=== PATIENT | male | born 2000 | race African-American/Black ===

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

== ENCOUNTER 2022-12-10 12:59 | Emergency (ER) | payer OTHER ==
[2022-12-10 13:04] VITALS: BP 128/85; PULSE 102; RESP 18; TEMP 97.9; BMI 27.1
== END 2022-12-10 14:47 | disposition home or self-care (01) ==
LOC: JER 12:59 → JERFT 12:59
DX: L73.9 Follicular disorder, unspecified (principal)
CPT/HCPCS: 99281-25

== ENCOUNTER 2024-06-11 11:05 | Emergency (ER) | payer OTHER ==
[2024-06-11 11:13] VITALS: BP 137/87; PULSE 78; RESP 17; TEMP 98.6; BMI 25.7
[2024-06-11] MEDS ORDERED: MAGNESIUM HYDROX 2400MG/30ML ORAL SUSPENSION 30 ML CUP ONE (12:36)
[2024-06-11] MEDS ORDERED: MAG HYDROX/AL HYDROX/SIMETH 30 ML UNIT-DOSE CUP ONE (12:37)
[2024-06-11] MEDS ORDERED: ONDANSETRON 4 MG/2 ML VIAL ONE (12:37)
[2024-06-11] MEDS ORDERED: FAMOTIDINE 20 MG/50 ML IVPB 20 MG/50 ML MG IVPB ONE (12:37)
[2024-06-11] MEDS: SODIUM CHLORIDE 0.9% 500 ML INFUS.BAG IV ONE (12:38)
[2024-06-11] MEDS: FAMOTIDINE 20 MG/50 ML IVPB 20 MG/50 ML MG IVPB ONE (12:39)
[2024-06-11] MEDS: MAG HYDROX/AL HYDROX/SIMETH 30 ML UNIT-DOSE CUP PO ONE (12:39)
[2024-06-11] MEDS: ONDANSETRON 4 MG/2 ML VIAL IVPB ONE (12:39)
[2024-06-11 12:58] LABS: BASO % 1.1 % (0-2.0); EOS % 2.3 % (0-4.5); HEMATOCRIT 46.7 % (35.4-49); HEMOGLOBIN 15.8 GM/dL (11.7-16.9); LYMPH % 19.9 % (8-40); MCH 31.2 pg (25.7-33.7); MCHC 33.9 g/dl (32.0-35.9); MEAN CELL VOLUME 92.1 fl (80-96); MEAN PLT VOLUME 9.2 fl (7.5-11.1); MONO % 6.2 % (3.8-10.2); NEUT % 70.5 % (42.8-82.8); PLATELET COUNT 241 10^3/uL (134-434); RBC 5.07 M/mm3 (4.00-5.60); RDW 12.7 % (11.9-15.9); WHITE BLOOD COUNT 7.6 K/mm3 (4.0-10.0)
[2024-06-11 13:03] LABS: INR 1.05 (0.83-1.09); PROTHROMBIN TIME (PATIENT) 12.1 SEC (9.7-13.0)
[2024-06-11 13:06] LABS: ACTIVATED PTT 30.9 SECONDS (25.2-36.5)
[2024-06-11 13:31] LABS: POTASSIUM 4.1 mmol/L (3.5-5.1)
[2024-06-11 13:33] LABS: CALCIUM 9.4 mg/dL (8.5-10.1)
[2024-06-11 13:34] LABS: ALBUMIN 4.3 g/dl (3.4-5.0); BLOOD UREA NITROGEN 13.9 mg/dL (7-18); MAGNESIUM 2.5 mg/dL (1.8-2.4)
[2024-06-11 13:37] LABS: CREATININE 1.2 mg/dL (0.55-1.3)
[2024-06-11 13:38] LABS: BILIRUBIN,TOTAL 1.8 mg/dL (0.2-1); TOT PROT 7.6 g/dl (6.4-8.2)
== END 2024-06-11 15:00 | disposition home or self-care (01) ==
LOC: JER 11:05
PROC: 3E033GC Introduction of Other Therapeutic Substance into Peripheral Vein, Percutaneous Approach (ICD-10-PCS; principal; 2024-06-11)
PROC: 3E033GC Introduction of Other Therapeutic Substance into Peripheral Vein, Percutaneous Approach (ICD-10-PCS; 2024-06-11)
DX: R11.2 Nausea with vomiting, unspecified (principal); R09.81 Nasal congestion; R05.9 Cough, unspecified; R53.83 Other fatigue; Z20.822 Contact with and (suspected) exposure to COVID-19
CPT/HCPCS: 0241U-QW; 36415; 80053; 83735; 85025; 85610; 85730; 86850; 86900; 86901; 99284-25